=== PATIENT | female | born 1965 | race Caucasian/White ===

== ENCOUNTER 2023-04-24 07:54 | Emergency (ER) | payer SELFPAY ==
[~2023-04-24] VITALS: Ht 162.6 cm; Wt 72.7 kg
[2023-04-24 08:06] VITALS: BP 152/89; PULSE 91; RESP 18; TEMP 98.2; O2SAT 96
[2023-04-24] MEDS ORDERED: VALA100031 PO (08:59)
[2023-04-24] MEDS ORDERED: PRED50TA PO (08:59)
== END 2023-04-24 09:07 | disposition home or self-care (01) ==
LOC: ER 07:55
DX: B02.9 Zoster without complications (principal); Z86.19 Personal history of other infectious and parasitic diseases; Z88.8 Allergy status to other drugs, medicaments and biological substances; Z79.2 Long term (current) use of antibiotics; Z79.899 Other long term (current) drug therapy
CPT/HCPCS: 99283

== ENCOUNTER 2024-04-26 09:23 | Outpatient (CLI) | payer BC ==
[~2024-04-26 09:23] MED LIST: PRED50TA PO; VALA100031 PO
== END 2024-04-26 23:59 | disposition home or self-care (01) ==
LOC: MRI 09:23
PROVIDERS: ATTEND Family Medicine
DX: S49.91XA Unspecified injury of right shoulder and upper arm, initial encounter (principal); M19.011 Primary osteoarthritis, right shoulder; M89.311 Hypertrophy of bone, right shoulder; M75.51 Bursitis of right shoulder; X58.XXXA Exposure to other specified factors, initial encounter; Y93.89 Activity, other specified; Y92.89 Other specified places as the place of occurrence of the external cause; Y99.8 Other external cause status
CPT/HCPCS: 73221

== ENCOUNTER 2024-07-18 09:05 | Day surgery (SDC) | payer BC ==
[2024-07-16 14:31] LABS: BILIRUBIN,URINE NEGATIVE (Neg); CLARITY,URINE CLEAR (Clear); COLOR,URINE YELLOW (Yellow); GLUCOSE, URINE NEGATIVE (Neg); KETONES,URINE 15 mg/dl (Neg); LEUKOCYTE ESTERASE ,URINE NEGATIVE (Neg); NITRITES, URINE NEGATIVE (Neg); OCCULT BLOOD,URINE NEGATIVE (Neg); PROTEIN,URINE NEGATIVE (Neg); UROBILINOGEN,URINE 0.2 E.U/dL (0.2-1.0)
[2024-07-16 14:34] LABS: BASOPHILS # (AUTO) 0.1 X10'3 (0-0.2); BASOPHILS % (AUTO) 0.9 % (0-1); EOSINOPHILS # (AUTO) 0.2 X10'3 (0-0.9); EOSINOPHILS % (AUTO) 1.9 % (0-6); LYMPHOCYTES # (AUTO) 2.4 X10'3 (1.1-4.8); LYMPHOCYTES % (AUTO) 28.2 % (21-51); MEAN CORPUSCULAR HEMOGLOBIN 32.6 PG (27.0-31.0); MEAN CORPUSCULAR HGB CONC 33.8 g/dL (33.0-36.5); MEAN CORPUSCULAR VOLUME 96.3 FL (78-98); MEAN PLATELET VOLUME 8.8 FL (7.4-10.4); MONOCYTES # (AUTO) 0.5 X10'3 (0-0.9); MONOCYTES % (AUTO) 6.4 % (2-12); NEUTROPHILS # (AUTO) 5.3 X10'3 (1.8-7.7); NEUTROPHILS % (AUTO) 62.6 % (42-75); PRE OP HEMATOCRIT 41.6 % (35.0-45.0); PRE OP HEMOGLOBIN 14.1 g/dL (12.0-16.0); PRE OP PLATELET COUNT 260 X10'3 (140-440); PRE OP WHITE BLOOD COUNT 8.4 10'3 (4.8-10.8); RED BLOOD COUNT 4.32 X10'6 (4.20-5.60); RED CELL DISTRIBUTION WIDTH 13.4 % (11.5-14.5)
[2024-07-16 14:38] LABS: UA COLLECTION TYPE CLN CATCH MIDSTREAM
[2024-07-16 14:47] LABS: ALBUMIN 4.1 G/DL (3.4-5.0); ALBUMIN/GLOBULIN RATIO 1.2 (1.1-1.5); ALKALINE PHOSPHATASE 88 IU/L (46-116); BLOOD UREA NITROGEN 12 MG/DL (7-18); BUN/CREATININE RATIO 14.5 (10.0-20.0); CALCIUM 9.2 MG/DL (8.5-10.1); CHLORIDE 106 MMOL/L (99-107); CREATININE 0.83 MG/DL (0.40-0.90); PRE OP ALT 77 U/L (30-65); PRE OP ANION GAP 12 (8-16); PRE OP AST 46 U/L (10-37); PRE OP BILIRUB, TOTAL 0.5 MG/DL (0.0-1.0); PRE OP GLUCOSE 114 MG/DL (70-104); PRE OP POTASSIUM 3.8 MMOL/L (3.4-5.1); PRE OP SODIUM 143 MMOL/L (135-145); TOTAL CARBON DIOXIDE 25.5 MMOL/L (24-32); TOTAL PROTEIN 7.6 G/DL (6.4-8.2); eGFR 71 ML/MIN
[~2024-07-18] VITALS: Ht 162.6 cm; Wt 80.0 kg
[2024-07-18] VITALS (12 sets, daily range): BP systolic 114–144; BP diastolic 60–86; PULSE 67–91; RESP 10–16; TEMP 97.8; O2SAT 93–99
[~2024-07-18 09:05] MED LIST changes: +HYDR-3972 PO; +IBUP-1985 PO; -PRED50TA PO; +TRAZ-251 PO; -VALA100031 PO; +VENL-191 PO
[2024-07-18] MEDS ORDERED: ondansetron/PF 4mg/2ml inj IV PRN (09:50)
[2024-07-18] MEDS ORDERED: proCHLORperazine 10 MG/2 ml inj IV PRN (09:50)
[2024-07-18] MEDS ORDERED: meperidine/PF 25mg/ml syringe IV PRN ×3 (09:50)
[2024-07-18] MEDS ORDERED: ringers solution, lacted 1,000 ML IV SCH (09:50)
[2024-07-18] MEDS ORDERED: enalaprilat dihydrate 2.5mg/2ml vial IV PRN (09:50)
[2024-07-18] MEDS ORDERED: morphine 2 MG/ML inj. syringe IV PRN (09:50)
[2024-07-18] MEDS ORDERED: labetalol 20mg/4ml (5mg/ml) syringe IV PRN (09:50)
[2024-07-18] MEDS ORDERED: morphine 4 MG/ML inj SYRINge IV PRN (09:50)
[2024-07-18] MEDS: ringers solution, lacted 1,000 ML IV SCH (09:58)
[2024-07-18] MEDS: scopolamine 1MG/72H patch 1 PATCH PATCH.TD.3 TD SCH (09:59)
[2024-07-18] MEDS: famotidine 20mg tablet PO ONE (09:59)
[2024-07-18] MEDS: ceFAZolin 2gm in dextrose, iso 50 ML IV ONE (10:00)
[2024-07-18] MEDS ORDERED: DIPH25CA83 PO (10:08)
[2024-07-18] MEDS ORDERED: bacitracin 15gm ointment TP ONE (11:38)
[2024-07-18] MEDS ORDERED: MIDAZolam 1 MG/ML 5ML VIAL ONE (12:30)
[2024-07-18] MEDS ORDERED: fentaNYL/PF 50MCG/1 ML 2ML syringe ONE (12:30)
[2024-07-18] MEDS ORDERED: sevoflurane 250ml liquid IH ONE (12:32)
[2024-07-18] MEDS ORDERED: BUPIVAcaine/PF 7.5mg/ml (0.75%) 10ml vial ONE ×2 (12:38→13:09)
[2024-07-18] MEDS ORDERED: propofol inj 20 ML IV ONE (13:08)
[2024-07-18] MEDS ORDERED: LIDOcaine 1%/PF 5ML 10 MG/ML VIAL ONE (13:09)
[2024-07-18] MEDS ORDERED: ROPIVAcaine 0.5% (5mg/ml) 30ml vial ONE (13:09)
[2024-07-18] MEDS ORDERED: meperidine/PF 25mg/ml syringe ONE (13:23)
[2024-07-18] MEDS ORDERED: ondansetron/PF 4mg/2ml inj ONE (14:24)
== END 2024-07-18 16:11 | disposition home or self-care (01) ==
LOC: PAS 09:05
PROVIDERS: ATTEND Podiatrist Foot & Ankle Surgery
DX: S82.832A Other fracture of upper and lower end of left fibula, initial encounter for closed fracture (principal); S93.422A Sprain of deltoid ligament of left ankle, initial encounter; M25.372 Other instability, left ankle; M25.472 Effusion, left ankle; G89.18 Other acute postprocedural pain; E66.9 Obesity, unspecified; F32.A Depression, unspecified; Z79.1 Long term (current) use of non-steroidal anti-inflammatories (NSAID); Z79.891 Long term (current) use of opiate analgesic; Z79.899 Other long term (current) drug therapy; Z90.49 Acquired absence of other specified parts of digestive tract; Z98.890 Other specified postprocedural states; Z68.28 Body mass index [BMI] 28.0-28.9, adult; Z88.8 Allergy status to other drugs, medicaments and biological substances; Z82.49 Family history of ischemic heart disease and other diseases of the circulatory system; Z82.61 Family history of arthritis; X58.XXXA Exposure to other specified factors, initial encounter; Y93.89 Activity, other specified; Y92.89 Other specified places as the place of occurrence of the external cause; Y99.8 Other external cause status
CPT/HCPCS: 27695; 27792; 27829; 36415; 64445; 64447; 73600; 80053; 81003; 82948; 85025; 93005; A6223; C1713; J0690; J2175; J2250; J2405; J2704; J2795; J3010; J3490; J7030; J7120; Z7506; Z7508; Z7512; 76000; A4618; A6253; A6449; A7000; J0131; J1100